=== PATIENT | male | born 1970 | race Caucasian/White ===

== ENCOUNTER 2023-06-17 21:22 | Emergency (ER) | payer MEDICARE, OTHER ==
[~2023-06-17] VITALS: Ht 175.3 cm; Wt 117.0 kg
[~2023-06-17 21:22] MED LIST: BUPROPION HCL100 M1 PO; BUSPIRONE HCL10 MG PO; CARAFATE1 GM PO; CEFPODOXIME PR200 MG PO; CLEOCIN HCL300 MG PO; FOLIC ACID1 MG PO; INDERAL LA60 MG PO; LOSARTAN POTASS25 MG PO; METRONIDAZOLE500 MG PO; OMEPRAZOLE20 MG PO
--- OUTSIDE RECORDS SUMMARY | 2023-06-17 21:31 | XMS ---
PreManage Notification: TESSA PEREZ Security Sulfide Head Operator Events No recent Security Events currently on file CRITERIA MET - [facility] - 2 Visits in 30 Days CARE PROVIDERS -[place]- Dentist: Retail And Promotions Coordinator [facility] Dental [facility] PHONE: [phone] CAT GROVES [facility] Current PHONE: [phone] JACQUES CAICEDODAVID [facility] Current PHONE: Unknown Josh has no Care Guidelines for this patient. E.D. VISIT COUNT (12 MO.) 5 Ramana Gerard [facility] 3 FAUSTINO Quesada [place] Fajardo [facility] TOTAL 9 NOTE: Visits indicate total known visits. ED/UCC VISIT TRACKING (12 MO.) 06/17/2023 21:23 FAUSTINO Espinoza [place] TYPE: Emergency COMPLAINT: - RT SHOULDER PAIN 06/07/2023 06:13 FAUSTINO Espinoza [place] TYPE: Emergency COMPLAINT: - DENTAL PAIN DIAGNOSES: - Allergy status to penicillin - Allergy status to sulfonamides - Contact with and (suspected) exposure to COVID-19 - Dental caries, unspecified - Essential (primary) hypertension - Gastro-esophageal reflux disease without esophagitis - Other detention (current) drug therapy 03/24/2023 00:32 FAUSTINO Espinoza [place] TYPE: Emergency COMPLAINT: - HIGH BLOOD PRESSURE DIAGNOSES: - Essential (primary) hypertension - Gastro-esophageal reflux disease without esophagitis - Heartburn - Other 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 02/03/2023 19:57 Parminder Fajardo [facility] DARRICK Perry TYPE: Emergency DIAGNOSES: - COVID-19 - "not feeling right" - Fever 01/31/2023 10:08 Ramana GERARD [place] TYPE: Emergency DIAGNOSES: - Other chest pain - Chest Pain - chest pain, right shoulder pain 11/17/2022 08:54 Ramana GERARD [place] TYPE: Emergency DIAGNOSES: - Anxiety disorder, unspecified - Chest pain, unspecified - Chest Pain - chest pain, sob 11/14/2022 07:46 Ramana GERARD [place] TYPE: Emergency DIAGNOSES: - Chest pain, unspecified - Essential (primary) hypertension - Gastro-esophageal reflux disease without esophagitis - Generalized anxiety disorder - Personal history of nicotine dependence - Personal history of other diseases of the circulatory system - Personal history of other endocrine, nutritional and metabolic disease - Chest Pain - chest pressure, left shoulder pain 11/03/2022 12:12 Ramana GERARD [place] TYPE: Emergency DIAGNOSES: - Chest pain, unspecified - Chest Pain - Numbess in Arms - Numbness 07/24/2022 05:21 Ramana GERARD [place] TYPE: Emergency DIAGNOSES: - Chest pain, unspecified - chest pain INPATIENT VISIT TRACKING (12 MO.) 11/14/2022 07:46 Ramana GERARD [place] TYPE: Telemetry DIAGNOSES: - Chest pain, unspecified - Essential (primary) hypertension - Gastro-esophageal reflux disease without esophagitis - Generalized anxiety disorder - Personal history of nicotine dependence - Personal history of other diseases of the circulatory system - Personal history of other endocrine, nutritional and metabolic disease [id number]
[2023-06-17] MEDS ORDERED: IBUPROFEN800 MG PO (21:36)
[2023-06-17] MEDS ORDERED: HYDROXYZINE HCL25 MG PO (21:36)
[2023-06-17 21:55] VITALS: BP 129/83
== END 2023-06-17 21:55 | disposition home or self-care (01) ==
LOC: ED 21:22
DX: S46.911A Strain of unspecified muscle, fascia and tendon at shoulder and upper arm level, right arm, initial encounter (principal); X58.XXXA Exposure to other specified factors, initial encounter; I10 Essential (primary) hypertension; K21.9 Gastro-esophageal reflux disease without esophagitis; Z88.0 Allergy status to penicillin; Z88.2 Allergy status to sulfonamides; Z79.899 Other long term (current) drug therapy
CPT/HCPCS: 99283

== ENCOUNTER 2024-07-18 06:49 | Emergency (ER) | payer MEDICARE, OTHER ==
[~2024-07-18] VITALS: Ht 175.3 cm; Wt 120.0 kg
[~2024-07-18 06:49] MED LIST changes: +HYDROCODON-ACE1 EA10 PO; +HYDROXYZINE HCL25 MG PO; +IBUPROFEN800 MG PO; +NITROGLYCERIN0.4 MG SL; +VANCOMYCIN HCL125 MG PO; +ZANAFLEX4 MG PO
--- OUTSIDE RECORDS SUMMARY | 2024-07-18 06:55 | XMS ---
PreManage Notification: TESSA PEREZ Security Tree Wrapper Events 1 event(s) in the past 18 months Most recent security events: Elopement at [facility] 07/19/2023 14:22 - Patient eloped with IV in place. - Patient eloped before treatment completed. - Patient with suicidal and/or homicidal ideations eloped. Details: Patient LWBS CRITERIA MET - Group Notification CARE PROVIDERS -Pati Dental+ Dentist: Rack Puller [facility] PHONE: [phone] -[place]- Dentist: Rack Puller [facility] PHONE: [phone] Josh has no Care Guidelines for this patient. E.Gerri. VISIT COUNT (12 MO.) [address] [facility]. TOTAL 3 NOTE: Visits indicate total known visits. ED/UCC VISIT TRACKING (12 MO.) 07/18/2024 06:49 FAUSTINO Espinoza [place] TYPE: Emergency COMPLAINT: - BACK PAIN 11/23/2023 12:14 FAUSTINO Espinoza [place] TYPE: Emergency COMPLAINT: - DIARRHEA,ABD PAIN DIAGNOSES: - Allergy status to penicillin - Allergy status to sulfonamides - Anxiety disorder, unspecified - Diarrhea, unspecified - Enterocolitis due to Clostridium difficile, not specified as recurrent - Essential (primary) hypertension - Gastro-esophageal reflux disease without esophagitis - Other remote computer terminal operator (current) drug therapy 07/19/2023 14:22 FAUSTINO Espinoza [place] TYPE: Emergency COMPLAINT: - HIGH BLOOD PRESSURE,SHOULDER/ARM PAIN INPATIENT VISIT TRACKING (12 MO.) No inpatient visits to display in this time frame [id number]
[2024-07-18] MEDS ORDERED: KETOROLAC TROMETHAMINE 30 MG/ML VIAL IM ONE (07:30)
[2024-07-18 07:48] VITALS: BP 121/98
== END 2024-07-18 07:49 | disposition home or self-care (01) ==
LOC: ED 06:49
DX: M54.41 Lumbago with sciatica, right side (principal); I10 Essential (primary) hypertension; W10.9XXA Fall (on) (from) unspecified stairs and steps, initial encounter; Z88.0 Allergy status to penicillin; Z88.2 Allergy status to sulfonamides; Z79.899 Other long term (current) drug therapy
CPT/HCPCS: 96372; 99283-25; J1885

== ENCOUNTER 2024-10-23 13:29 | Emergency (ER) | payer MEDICARE, MEDICAID ==
[~2024-10-23] VITALS: Ht 175.3 cm; Wt 107.5 kg
--- OUTSIDE RECORDS SUMMARY | 2024-10-23 13:36 | XMS ---
PreManage Notification: TESSA PEREZ Security Washing Machine Installer Events 1 event(s) in the past 18 months Most recent security events: Elopement at [facility] 07/19/2023 14:22 - Patient eloped with IV in place. - Patient eloped before treatment completed. - Patient with suicidal and/or homicidal ideations eloped. Details: Patient LWBS CRITERIA MET - Group Notification CARE PROVIDERS -Pati Dental+ Dentist: Knot Borer [facility] PHONE: [phone] -[place]- Dentist: Knot Borer [facility] Dental [facility] PHONE: [phone] Josh has no Care Guidelines for this patient. E.Gerri. VISIT COUNT (12 MO.) [address] [facility] TOTAL 3 NOTE: Visits indicate total known visits. ED/UCC VISIT TRACKING (12 MO.) 10/23/2024 13:29 FAUSTINO Espinoza [place] TYPE: Emergency COMPLAINT: - POSS ANXIETY 07/18/2024 06:49 FAUSTINO Espinoza [place] TYPE: Emergency COMPLAINT: - BACK PAIN DIAGNOSES: - Allergy status to penicillin - Allergy status to sulfonamides - Essential (primary) hypertension - Fall (on) (from) unspecified stairs and steps, initial encounter - Low back pain, unspecified - Lumbago with sciatica, right side - Other longwall shearer operator (current) drug therapy - Sciatica, right side 11/23/2023 12:14 FAUSTINO Espinoza [place] TYPE: Emergency COMPLAINT: - DIARRHEA,ABD PAIN DIAGNOSES: - Allergy status to penicillin - Allergy status to sulfonamides - Anxiety disorder, unspecified - Diarrhea, unspecified - Enterocolitis due to Clostridium difficile, not specified as recurrent - Essential (primary) hypertension - Gastro-esophageal reflux disease without esophagitis - Other longwall shearer operator (current) drug therapy INPATIENT VISIT TRACKING (12 MO.) No inpatient visits to display in this time frame [email or web address]
[2024-10-23] MEDS ORDERED: TAMSULOSIN HCL0.4 MG PO (13:38)
[2024-10-23 14:55] LABS: BASOPHILS 1.9 % (0-2); EOSINOPHILS 10.2 % (0-6); HEMATOCRIT 40.8 % (35.0-50.0); HEMOGLOBIN 13.8 g/dL (12.0-18.0); LYMPHOCYTES 26.8 % (24-44); MCH 28.6 (27-36); MCHC 33.9 g/dl (30-36); MCV 84.4 fl (81-99); MONOCYTES 6.3 % (0-12); NEUTROPHILS 54.8 % (39-80); PLATELET COUNT 216 K/uL (140-440); RBC 4.83 M/ul (4.3-5.7); RDW 14.4 (10.5-15.0)
[2024-10-23 15:12] LABS: ALBUMIN 3.8 g/dL (3.4-5.0); ALBUMIN/GLOBULIN RATIO 1.03 (1.1-2.4); ALKALINE PHOSPHATASE 74 U/L (46-116); ALT (SGPT) 19 U/L (14-59); ANION GAP 13.2 (7-21); AST (SGOT) 12 U/L (15-37); BILIRUBIN, TOTAL 0.4 ng/dL (0.2-1.0); BUN/CREATININE RATIO 15.65 (6.0-28.6); CALCIUM 9.1 mg/dL (8.5-10.1); CARBON DIOXIDE 27 mmol/L (21-32); CHLORIDE 103 mmol/L (98-107); CREATININE, SERUM 1.15 mg/dL (0.70-1.30); GLOMERULAR FILTRATION RATE,EST 75 mL/min (>60); MAGNESIUM 2.1 mg/dL (1.8-2.4); POTASSIUM 4.2 mmol/L (3.5-5.1); PROTEIN, TOTAL 7.5 g/dL (6.4-8.2); UREA NITROGEN 18 mg/dL (7-18)
[2024-10-23 16:40] VITALS: BP 131/98
--- NOTE | 2024-10-23 22:58 | EKG ---
[facility] [address] [place] [address] Signed Normal sinus rhythm Normal ECG When compared with ECG of 24-MAR-2023 00:52, No significant change was found Confirmed by Ross Laird MD () on 10/23/2024 10:58:17 PM Electronically Signed By: ROSS LAIRD MD 10/23/24 2258 PATIENT NAME: ANATESSA Electrocardiogram DATE OF : 68 PHYSICIAN: ROSS LAIRD MD REPORT #: [id number] REPORT IS CONFIDENTIAL AND NOT TO BE RELEASED WITHOUT AUTHORIZATION
== END 2024-10-23 16:45 | disposition home or self-care (01) ==
LOC: ED 13:29
PROVIDERS: Emergency Medicine
DX: F41.9 Anxiety disorder, unspecified (principal); I10 Essential (primary) hypertension; K21.9 Gastro-esophageal reflux disease without esophagitis; Z88.0 Allergy status to penicillin; Z88.2 Allergy status to sulfonamides; Z79.899 Other long term (current) drug therapy
CPT/HCPCS: 36415; 71045; 80053; 83735; 84484; 85025; 93005; 93010; 99285-25

== ENCOUNTER 2024-11-02 22:13 | Emergency (ER) | payer MEDICARE, MEDICAID ==
[~2024-11-02] VITALS: Ht 175.3 cm; Wt 112.9 kg
[~2024-11-02 22:13] MED LIST changes: +TAMSULOSIN HCL0.4 MG PO
--- OUTSIDE RECORDS SUMMARY | 2024-11-02 22:15 | XMS ---
PreManage Notification: TESSA PEREZ Security Cutter Hot Knife Events 1 event(s) in the past 18 months Most recent security events: Elopement at [facility] 07/19/2023 14:22 - Patient eloped with IV in place. - Patient eloped before treatment completed. - Patient with suicidal and/or homicidal ideations eloped. Details: Patient LWBS CRITERIA MET - Group Notification - [facility] - 2 Visits in 30 Days CARE PROVIDERS -, [facility]i Dental+ Dentist: Corporate Security Manager [facility] PHONE: [phone] -[place]- Dentist: Corporate Security Manager [facility] Dental [facility] PHONE: [phone] Josh has no Care Guidelines for this patient. E.D. VISIT COUNT (12 MO.) [address] [facility] TOTAL 4 NOTE: Visits indicate total known visits. ED/UCC VISIT TRACKING (12 MO.) 11/02/2024 22:13 FAUSTINO Espinoza [place] TYPE: Emergency COMPLAINT: - CHEST PAIN 10/23/2024 13:29 FAUSTINO Espinoza [place] TYPE: Emergency COMPLAINT: - POSS ANXIETY DIAGNOSES: - Allergy status to penicillin - Allergy status to sulfonamides - Anxiety disorder, unspecified - Essential (primary) hypertension - Gastro-esophageal reflux disease without esophagitis - Other supervisor long goods (current) drug therapy - Palpitations 07/18/2024 06:49 FAUSTINO Espinoza [place] TYPE: Emergency COMPLAINT: - BACK PAIN DIAGNOSES: - Allergy status to penicillin - Allergy status to sulfonamides - Essential (primary) hypertension - Fall (on) (from) unspecified stairs and steps, initial encounter - Low back pain, unspecified - Lumbago with sciatica, right side - Other supervisor long goods (current) drug therapy - Sciatica, right side 11/23/2023 12:14 FAUSTINO Espinoza [place] TYPE: Emergency COMPLAINT: - DIARRHEA,ABD PAIN DIAGNOSES: - Allergy status to penicillin - Allergy status to sulfonamides - Anxiety disorder, unspecified - Diarrhea, unspecified - Enterocolitis due to Clostridium difficile, not specified as recurrent - Essential (primary) hypertension - Gastro-esophageal reflux disease without esophagitis - Other supervisor long goods (current) drug therapy INPATIENT VISIT TRACKING (12 MO.) No inpatient visits to display in this time frame [id number]
[2024-11-02] MEDS ORDERED: BUPROPION XL150 MG PO (22:23)
[2024-11-02] MEDS ORDERED: LAMOTRIGINE25 MG PO (22:24)
[2024-11-02] MEDS ORDERED: ASPIRIN 81 MG CHEW PO ONE (22:30)
[2024-11-02 22:37] LABS: BASOPHILS 1.4 % (0-2); HEMATOCRIT 43.3 % (35.0-50.0); HEMOGLOBIN 14.7 g/dL (12.0-18.0); LYMPHOCYTES 21.9 % (24-44); MCH 28.6 (27-36); MCV 83.9 fl (81-99); NEUTROPHILS 64.7 % (39-80); PLATELET COUNT 269 K/uL (140-440); RBC 5.16 M/ul (4.3-5.7)
[2024-11-02 22:50] LABS: INR 0.99 (0.80-1.30); PROTIME 12.9 Sec (11.2-14.2)
[2024-11-02 23:03] LABS: ALBUMIN 4.2 g/dL (3.4-5.0); ALBUMIN/GLOBULIN RATIO 1.14 (1.1-2.4); ANION GAP 11.9 (7-21); BILIRUBIN, TOTAL 0.4 ng/dL (0.2-1.0); BUN/CREATININE RATIO 16.21 (6.0-28.6); CALCIUM 9.8 mg/dL (8.5-10.1); CREATININE, SERUM 1.11 mg/dL (0.70-1.30); MAGNESIUM 2.3 mg/dL (1.8-2.4); POTASSIUM 3.9 mmol/L (3.5-5.1); PROTEIN, TOTAL 7.9 g/dL (6.4-8.2)
[2024-11-03] MEDS ORDERED: CYCLOBENZAPRINE10 MG PO (00:15)
[2024-11-03 00:30] VITALS: BP 123/88
--- NOTE | 2024-11-03 10:51 | EKG ---
[facility] [address] [facility] [place], [place] [address] Signed Sinus bradycardia Otherwise normal ECG When compared with ECG of 23-OCT-2024 13:44, No significant change was found Confirmed by Mike Zavala MD ([id number]) on 11/03/2024 10:51:20 AM Electronically Signed By: MIKE ZAVALA MD 11/03/24 105 PATIENT NAME: ANATESSA Electrocardiogram DATE OF : 68 PHYSICIAN: MIKE ZAVALA MD REPORT #: [id number] REPORT IS CONFIDENTIAL AND NOT TO BE RELEASED WITHOUT AUTHORIZATION
== END 2024-11-03 00:32 | disposition home or self-care (01) ==
LOC: ED 22:13
PROVIDERS: Family Medicine
DX: R07.89 Other chest pain (principal); I10 Essential (primary) hypertension; K21.9 Gastro-esophageal reflux disease without esophagitis; Z79.899 Other long term (current) drug therapy; Z88.0 Allergy status to penicillin; Z88.2 Allergy status to sulfonamides
CPT/HCPCS: 36415; 71045; 80053; 83735; 83880; 84484; 85025; 85610; 93005; 93010; 99285-25; A9270

== ENCOUNTER 2024-11-20 08:59 | Emergency (ER) | payer OTHER, MEDICARE, MEDICAID ==
[~2024-11-20] VITALS: Ht 175.3 cm; Wt 105.7 kg
[~2024-11-20 08:59] MED LIST changes: +BUPROPION XL150 MG PO; +CYCLOBENZAPRINE10 MG PO; +LAMOTRIGINE25 MG PO
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
[2024-11-20] MEDS ORDERED: diazePAM 5 MG TAB PO ONE (10:00)
[2024-11-20] MEDS ORDERED: KETOROLAC TROMETHAMINE 60 MG/2 ML VIAL IM ONE (10:00)
[2024-11-20] MEDS ORDERED: DIAZEPAM5 MG PO (10:49)
[2024-11-20 10:55] VITALS: BP 124/90
== END 2024-11-20 10:55 | disposition home or self-care (01) ==
LOC: ED 08:59
DX: S39.012A Strain of muscle, fascia and tendon of lower back, initial encounter (principal); M54.42 Lumbago with sciatica, left side; I10 Essential (primary) hypertension; K21.9 Gastro-esophageal reflux disease without esophagitis; Z88.0 Allergy status to penicillin; Z88.2 Allergy status to sulfonamides; Z79.899 Other long term (current) drug therapy; V43.92XA Unspecified car occupant injured in collision with other type car in traffic accident, initial encounter
CPT/HCPCS: 96372; 99283; J1885

== ENCOUNTER 2024-12-01 06:41 | Emergency (ER) | payer MEDICARE, MEDICAID ==
[~2024-12-01] VITALS: Ht 175.3 cm; Wt 109.3 kg
[~2024-12-01 06:41] MED LIST changes: +DIAZEPAM5 MG PO
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
[2024-12-01] MEDS ORDERED: HYDROCODONE/ACETA 5/325 TAB PO ONE (07:15)
[2024-12-01] MEDS ORDERED: KETOROLAC TROMETHAMINE 15 MG/ML VIAL IM ONE (08:30)
[2024-12-01] MEDS ORDERED: KETOROLAC TROMETHAMINE 15 MG/ML VIAL IV ONE (08:30)
[2024-12-01] MEDS ORDERED: CYCLOBENZAPRINE10 MG PO (08:58)
[2024-12-01 09:10] VITALS: BP 141/73
[2024-12-01] MEDS ORDERED: PAROXETINE HCL10 MG PO (16:28)
[2024-12-01] MEDS ORDERED: ROSUVASTATIN CA10 MG PO (16:28)
[2024-12-02] MEDS ORDERED: DIAZEPAM5 MG PO (11:17)
== END 2024-12-01 09:12 | disposition home or self-care (01) ==
LOC: ED 06:41
DX: G44.209 Tension-type headache, unspecified, not intractable (principal); M54.2 Cervicalgia; I10 Essential (primary) hypertension; K21.9 Gastro-esophageal reflux disease without esophagitis; Z88.0 Allergy status to penicillin; Z88.2 Allergy status to sulfonamides; Z79.899 Other long term (current) drug therapy
CPT/HCPCS: 70450; 70496; 70498; 72125; 96374; 99284-25; J1885; Q9967

== ENCOUNTER 2024-12-18 04:03 | Emergency (ER) | payer OTHER, MEDICARE, MEDICAID ==
[~2024-12-18] VITALS: Ht 175.3 cm; Wt 110.0 kg
[~2024-12-18 04:03] MED LIST changes: +PAROXETINE HCL10 MG PO; +ROSUVASTATIN CA10 MG PO
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
[2024-12-18] MEDS ORDERED: PREGABALIN50 MG PO (04:21)
[2024-12-18] MEDS ORDERED: LACTATED RINGER'S 1,000 ML IV ONE (04:30)
[2024-12-18] MEDS ORDERED: PROCHLORPERAZINE EDISYLATE 10 MG/2 ML VIAL IV ONE (04:30)
[2024-12-18] MEDS ORDERED: KETOROLAC TROMETHAMINE 30 MG/ML VIAL IV ONE (04:30)
[2024-12-18] MEDS ORDERED: diphenhydrAMINE HCL 50 MG/ML VIAL IV ONE (04:30)
[2024-12-18] MEDS ORDERED: METHYLPREDNISOLO4 M1 PO (06:03)
[2024-12-18 06:13] VITALS: BP 123/87
== END 2024-12-18 06:13 | disposition home or self-care (01) ==
LOC: ED 04:03
DX: G44.89 Other headache syndrome (principal); M54.2 Cervicalgia; I10 Essential (primary) hypertension; K21.9 Gastro-esophageal reflux disease without esophagitis; Z79.899 Other long term (current) drug therapy; Z88.0 Allergy status to penicillin; Z88.2 Allergy status to sulfonamides; Z88.8 Allergy status to other drugs, medicaments and biological substances
CPT/HCPCS: 96374; 96375; 99283-25; J0780; J1200; J1885; J7121

== ENCOUNTER 2024-12-25 06:07 | Emergency (ER) | payer OTHER, MEDICARE, MEDICAID ==
[~2024-12-25] VITALS: Ht 175.3 cm; Wt 110.0 kg
[~2024-12-25 06:07] MED LIST changes: +METHYLPREDNISOLO4 M1 PO; +PREGABALIN50 MG PO
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
[2024-12-25] MEDS ORDERED: SODIUM CHLORIDE 0.9% 1,000 ML IV ONE (06:45)
[2024-12-25] MEDS ORDERED: ONDANSETRON ODT8 MG PO (06:45)
[2024-12-25] MEDS ORDERED: diphenhydrAMINE HCL 50 MG/ML VIAL IV ONE (06:45)
[2024-12-25] MEDS ORDERED: IMITREX25 MG PO (06:45)
[2024-12-25] MEDS ORDERED: KETOROLAC TROMETHAMINE 30 MG/ML VIAL IV ONE (06:45)
[2024-12-25] MEDS ORDERED: METOCLOPRAMIDE HCL 10 MG/2 ML SDV IV ONE (06:45)
[2024-12-25] MEDS ORDERED: SUMAtriptan succinate 6 MG/0.5 ML VIAL SUB-Q ONE (06:45)
[2024-12-25] MEDS ORDERED: BUTALB-ACETAMI1 EACH PO (06:45)
[2024-12-25 07:44] VITALS: BP 117/83
== END 2024-12-25 07:45 | disposition home or self-care (01) ==
LOC: ED 06:07
DX: G44.209 Tension-type headache, unspecified, not intractable (principal); I10 Essential (primary) hypertension; K21.9 Gastro-esophageal reflux disease without esophagitis; Z88.0 Allergy status to penicillin; Z88.2 Allergy status to sulfonamides; Z88.8 Allergy status to other drugs, medicaments and biological substances; Z79.899 Other long term (current) drug therapy
CPT/HCPCS: 96374; 96375; 99283-25; J1200; J1885; J2765; J3030; J7030

== ENCOUNTER 2025-01-07 17:23 | Emergency (ER) | payer MEDICARE, MEDICAID, OTHER ==
[~2025-01-07] VITALS: Ht 175.3 cm; Wt 108.3 kg
[~2025-01-07 17:23] MED LIST changes: +BUTALB-ACETAMI1 EACH PO; +IMITREX25 MG PO; +ONDANSETRON ODT8 MG PO
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
[2025-01-07 18:14] VITALS: BP 120/79
--- NOTE | 2025-01-09 21:29 | EKG ---
[facility] [address] [facility] [place] [address] Signed Sinus bradycardia with sinus arrhythmia Otherwise normal ECG When compared with ECG of 02-NOV-2024 22:15, No significant change was found Confirmed by Rick Maxwell DO ([id number]) on 01/09/2025 9:28:40 PM Electronically Signed By: RICK MAXWELL DO 01/09/252128 PATIENT NAME: TESSA PEREZ Electrocardiogram DATE OF : 68 PHYSICIAN: RICK MAXWELL DO REPORT #: [id number] REPORT IS CONFIDENTIAL AND NOT TO BE RELEASED WITHOUT AUTHORIZATION
== END 2025-01-07 18:22 | disposition left against medical advice (07) ==
LOC: ED 17:23
DX: M25.512 Pain in left shoulder (principal); R07.89 Other chest pain; Z53.21 Procedure and treatment not carried out due to patient leaving prior to being seen by health care provider
CPT/HCPCS: 93005; 93010

== ENCOUNTER 2025-04-29 13:50 | Emergency (ER) | payer MEDICARE ==
[~2025-04-29] VITALS: Ht 175.3 cm; Wt 108.3 kg
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
[2025-04-29 14:15] VITALS: BP 125/94
== END 2025-04-29 14:16 | disposition home or self-care (01) ==
LOC: ED 13:50
DX: L98.8 Other specified disorders of the skin and subcutaneous tissue (principal); I10 Essential (primary) hypertension; Z88.0 Allergy status to penicillin; Z88.2 Allergy status to sulfonamides; Z88.8 Allergy status to other drugs, medicaments and biological substances; Z79.899 Other long term (current) drug therapy
CPT/HCPCS: 99282

== ENCOUNTER 2025-08-06 01:07 | Emergency (ER) | payer MEDICARE ==
[~2025-08-06] VITALS: Ht 172.7 cm; Wt 110.2 kg
[~2025-08-06 01:07] MED LIST changes: +CEPHALEXIN500 M1 PO
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
[2025-08-06] MEDS ORDERED: methylPREDNISolone 4 MG HOME.PACK PO ONE (01:30)
[2025-08-06 01:42] VITALS: BP 135/109
== END 2025-08-06 01:43 | disposition home or self-care (01) ==
LOC: ED 01:07
DX: M54.42 Lumbago with sciatica, left side (principal); G89.29 Other chronic pain; I10 Essential (primary) hypertension; Z88.0 Allergy status to penicillin; Z88.2 Allergy status to sulfonamides; Z79.899 Other long term (current) drug therapy
CPT/HCPCS: 99283

== ENCOUNTER 2025-08-22 16:57 | Emergency (ER) | payer MEDICARE ==
[~2025-08-22] VITALS: Ht 172.7 cm; Wt 117.5 kg
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
[2025-08-22 18:12] VITALS: BP 134/101
== END 2025-08-22 18:09 | disposition home or self-care (01) ==
LOC: ED 16:57
DX: S63.92XA Sprain of unspecified part of left wrist and hand, initial encounter (principal); K21.9 Gastro-esophageal reflux disease without esophagitis; I10 Essential (primary) hypertension; X58.XXXA Exposure to other specified factors, initial encounter; Z79.899 Other long term (current) drug therapy; Z88.0 Allergy status to penicillin; Z88.2 Allergy status to sulfonamides; Z88.8 Allergy status to other drugs, medicaments and biological substances
CPT/HCPCS: 73130; 99283

== ENCOUNTER 2025-08-30 03:30 | Emergency (ER) | payer MEDICARE, OTHER ==
[~2025-08-30] VITALS: Ht 172.7 cm; Wt 117.5 kg
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
[2025-08-30] MEDS ORDERED: ASPIRIN 81 MG CHEW PO ONE (03:45)
[2025-08-30] MEDS ORDERED: LIDOCAINE & ANTACID 35 ML BTL PO ONE (03:45)
[2025-08-30] MEDS ORDERED: SUCRALFATE 1 GM TAB PO ONE (03:45)
[2025-08-30 03:59] LABS: BASOPHILS 1.5 % (0.2-1.2); EOSINOPHILS 6.8 % (0.8-7.0); LYMPHOCYTES 25.7 % (21.8-53.1); MCH 29.0 PG (25.7-32.2); MCHC 34.6 g/dL (32.3-36.5); MCV 83.6 fL (79.0-92.2); MONOCYTES 6.8 % (5.3-12.2); NEUTROPHILS 58.9 % (34.0-67.9); RBC 4.87 M/uL (4.63-6.08)
[2025-08-30 04:09] LABS: INR 0.97 (0.80-1.30); PROTIME 12.2 Sec (11.2-14.2)
[2025-08-30] MEDS ORDERED: CARAFATE1 GM PO (04:11)
[2025-08-30] MEDS ORDERED: PROTONIX40 MG PO (04:11)
[2025-08-30 04:17] LABS: ALT (SGPT) 24.0 U/L (14-59); AST (SGOT) 10.0 U/L (15-37); GLOMERULAR FILTRATION RATE,EST 77.0 mL/min (>60); PROTEIN, TOTAL 7.1 g/dL (6.4-8.2); UREA NITROGEN 21.0 mg/dL (7-18)
[2025-08-30 04:44] VITALS: BP 113/82
--- NOTE | 2025-08-30 19:02 | EKG ---
[facility] [address] [facility] [place] [address] Signed Normal sinus rhythm with sinus arrhythmia Normal ECG When compared with ECG of 07-JAN-2025 17:44, No significant change was found Confirmed by Ross Laird MD () on 08/30/2025 7:02:44 PM Electronically Signed By: ROSS LAIRD MD 08/30/251901 PATIENT NAME: BENANDIETESSA Electrocardiogram DATE OF : 68 PHYSICIAN: ROSS LAIRD MD REPORT #: [id number] REPORT IS CONFIDENTIAL AND NOT TO BE RELEASED WITHOUT AUTHORIZATION
== END 2025-08-30 04:40 | disposition home or self-care (01) ==
LOC: ED 03:30
PROVIDERS: Family Medicine
DX: R07.89 Other chest pain (principal); R12 Heartburn; K21.9 Gastro-esophageal reflux disease without esophagitis; I10 Essential (primary) hypertension; Z79.899 Other long term (current) drug therapy; Z88.0 Allergy status to penicillin; Z88.2 Allergy status to sulfonamides; Z88.8 Allergy status to other drugs, medicaments and biological substances
CPT/HCPCS: 36415; 71045; 80053; 83735; 84484; 85025; 85610; 93005; 93010; 99285-25; A9270

== ENCOUNTER 2025-09-25 10:42 | Emergency (ER) | payer MEDICARE ==
[~2025-09-25] VITALS: Ht 172.7 cm; Wt 119.0 kg
[~2025-09-25 10:42] MED LIST changes: +PROTONIX40 MG PO
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
[2025-09-25 11:30] VITALS: BP 122/84
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
== END 2025-09-25 11:31 | disposition home or self-care (01) ==
LOC: ED 10:42
DX: M54.2 Cervicalgia (principal); G89.29 Other chronic pain; I10 Essential (primary) hypertension; K21.9 Gastro-esophageal reflux disease without esophagitis; Z79.899 Other long term (current) drug therapy; Z88.0 Allergy status to penicillin; Z88.2 Allergy status to sulfonamides; Z88.1 Allergy status to other antibiotic agents
CPT/HCPCS: 99283